=== PATIENT | female | born 1950 | race Caucasian/White ===

== ENCOUNTER 2019-08-11 02:12 | Outpatient (CLI) | payer SELFPAY ==
[2019-08-11 10:21] LABS: HEMOGLOBIN A1C 5.4 % (4.5-6.2)
[2019-08-11 10:36] LABS: CHOL/HDL RATIO 2.6 (0.00-4.99)
== END 2019-08-11 23:59 | disposition home or self-care (01) ==
LOC: HW HEART 02:12
DX: Z13.6 Encounter for screening for cardiovascular disorders (principal)
CPT/HCPCS: 36415

== ENCOUNTER 2022-07-24 15:14 | Inpatient (IN) | payer MEDICARE, BC ==
[~2022-07-24] VITALS: Ht 167.6 cm; Wt 72.7 kg
[2022-07-24] MEDS ORDERED: nitroGLYCERIN 0.4mg SUBLingual tab SL PRN (15:25)
[2022-07-24] MEDS ORDERED: morphine 4 MG/ML inj SYRINge IV ONE (15:25)
[2022-07-24] MEDS ORDERED: aspirin 81mg tab.chew PO ONE (15:25)
[2022-07-24] MEDS ORDERED: iohexol 350 MG/ML 50ML vial IV ONE (15:31)
[2022-07-24] MEDS ORDERED: heparin 10,000 units/1 ML INJ IV PRN ×2 (15:35→18:35)
[2022-07-24] MEDS ORDERED: heparin 10,000 units/1 ML INJ IV ONE ×3 (15:35→18:35)
[2022-07-24 15:37] LABS: BASOPHILS % (AUTO) 0.1 % (0-1); EOSINOPHILS % (AUTO) 0 % (0-6); HEMATOCRIT 40.6 % (35.0-45.0); HEMOGLOBIN 13.7 g/dl (12.0-16.0); LYMPHOCYTES # (AUTO) 1.7 X10'3 (1.1-4.8); LYMPHOCYTES % (AUTO) 15.5 % (21-51); MEAN CORPUSCULAR HEMOGLOBIN 31.1 PG (27.0-31.0); MEAN CORPUSCULAR HGB CONC 33.6 g/dL (33.0-36.5); MEAN CORPUSCULAR VOLUME 92.6 FL (78-98); MEAN PLATELET VOLUME 6.6 FL (7.4-10.4); MONOCYTES # (AUTO) 0.9 X10'3 (0-0.9); MONOCYTES % (AUTO) 8.2 % (2-12); NEUTROPHILS # (AUTO) 8.2 X10'3 (1.8-7.7); NEUTROPHILS % (AUTO) 76.2 % (42-75); PLATELET COUNT 353 X10'3 (140-440); RED BLOOD COUNT 4.39 X10'6 (4.20-5.60); RED CELL DISTRIBUTION WIDTH 13.9 % (11.5-14.5); WHITE BLOOD COUNT 10.7 X10'3 (4.5-11.0)
[2022-07-24] MEDS: heparin 25,000 UNIT/250ml bag 250 ML IV PRN (15:44)
[2022-07-24 15:52] LABS: ALANINE AMINOTRANSFERASE 53 U/L (12-78); ALBUMIN 4.4 G/DL (3.4-5.0); ALBUMIN/GLOBULIN RATIO 1.5 (1.1-1.5); ALKALINE PHOSPHATASE 44 IU/L (46-116); ANION GAP 11 (8-16); ASPARTATE AMINO TRANSFERASE 43 U/L (10-37); BILIRUBIN,TOTAL 0.5 MG/DL (0.1-1.0); BLOOD UREA NITROGEN 21 MG/DL (7-18); BUN/CREATININE RATIO 25.6 (6.6-38.0); CALCIUM 9.4 MG/DL (8.5-10.1); CHLORIDE 97 MMOL/L (99-107); CREATININE 0.82 MG/DL (0.40-0.90); GLUCOSE 117 MG/DL (70-104); POTASSIUM 3.8 MMOL/L (3.5-5.1); SODIUM 133 MMOL/L (135-145); TOTAL CARBON DIOXIDE 25.4 MMOL/L (24-32); TOTAL PROTEIN 7.3 G/DL (6.4-8.2); eGFR 68 ML/MIN
[2022-07-24 15:57] LABS: APTT 26 SECONDS (22-32)
--- NOTE | 2022-07-24 17:30 | NUR ---
VASCULAR AT BEDSIDE
[2022-07-24] MEDS ORDERED: HYDR-3965 PO (17:47)
[2022-07-24] MEDS ORDERED: LEVO100T PO ×2 (17:47→21:04)
[2022-07-24] MEDS ORDERED: heparin 25,000 UNIT/250ml bag 250 ML IV PRN (18:35)
--- NOTE | 2022-07-24 18:37 | NUR ---
DR ADAMS RETURNED PAGE AND WAS NOTIFIED OF PT TROPONIN OF 100. REC TELE ORDER TO INITIATE THE CARDIAC HEAPARIN PROTOCAL FOR NSTEMI. NOTIFIED CARTER PATE OF TROP LEVEL AND NEW ORDER TO START HEPARIN PROTOCAL FOR NSTEMI
[2022-07-24] MEDS ORDERED: DULO-31 PO (18:39)
[2022-07-24] MEDS ORDERED: acetaminophen 325mg tablet PO PRN (19:25)
[2022-07-24] MEDS ORDERED: mag hydrox/Alum hydrox/simeth 30ml oral suspension PO PRN (19:25)
[2022-07-24] MEDS ORDERED: potassium Cl 40MEQ/1/2NS 520ml 520 ML IV PRN (19:25)
[2022-07-24] MEDS ORDERED: magnesium hydroxide 30ml (MOM) UD suspension PO PRN (19:25)
[2022-07-24] MEDS ORDERED: ondansetron/PF 4mg/2ml inj IV PRN (19:25)
[2022-07-24] MEDS ORDERED: potassium Cl 20 mEq SR tablet PO PRN ×2 (19:25)
[2022-07-24] MEDS ORDERED: morphine 2 MG/ML inj. syringe IV PRN ×2 (19:25)
[2022-07-24] MEDS ORDERED: normal saline 1000ml 1,000 ML IV SCH (19:25)
[2022-07-24] MEDS ORDERED: magnesium 4gm in 100ml NS 100 ML IV PRN (19:25)
[2022-07-24] MEDS ORDERED: magnesium Cl slow-release 64mg tablet PO PRN (19:25)
[2022-07-24] MEDS ORDERED: metoprolol tartrate 50mg tablet PO ONE (19:30)
--- NOTE | 2022-07-24 19:34 | NUR ---
holding lopressor currently r/t HR 58
[2022-07-24] MEDS: K and/or MAG REPLACEMENT MC SCH (20:00)
[2022-07-24] MEDS: docusate sod 100mg capsule PO SCH (20:00)
[2022-07-24] MEDS ORDERED: DULO60CA65 PO (21:04)
[2022-07-24 22:00] VITALS: BP 139/76
[2022-07-25] VITALS (11 sets, daily range): BP systolic 103–150; BP diastolic 44–72
[2022-07-25 02:13] LABS: BASOPHILS % (AUTO) 0 % (0-1); EOSINOPHILS % (AUTO) 0 % (0-6); HEMATOCRIT 37.3 % (35.0-45.0); HEMOGLOBIN 12.7 g/dl (12.0-16.0); LYMPHOCYTES # (AUTO) 1.9 X10'3 (1.1-4.8); LYMPHOCYTES % (AUTO) 28.2 % (21-51); MEAN CORPUSCULAR HEMOGLOBIN 31.6 PG (27.0-31.0); MEAN CORPUSCULAR VOLUME 92.9 FL (78-98); MEAN PLATELET VOLUME 6.4 FL (7.4-10.4); MONOCYTES # (AUTO) 0.5 X10'3 (0-0.9); MONOCYTES % (AUTO) 7.2 % (2-12); NEUTROPHILS # (AUTO) 4.5 X10'3 (1.8-7.7); NEUTROPHILS % (AUTO) 64.6 % (42-75); PLATELET COUNT 272 X10'3 (140-440); RED BLOOD COUNT 4.01 X10'6 (4.20-5.60); WHITE BLOOD COUNT 6.9 X10'3 (4.5-11.0)
[2022-07-25 02:25] LABS: ALANINE AMINOTRANSFERASE 47 U/L (12-78); ALBUMIN 3.7 G/DL (3.4-5.0); ALBUMIN/GLOBULIN RATIO 1.3 (1.1-1.5); ALKALINE PHOSPHATASE 41 IU/L (46-116); ANION GAP 7 (8-16); ASPARTATE AMINO TRANSFERASE 36 U/L (10-37); BILIRUBIN,TOTAL 0.3 MG/DL (0.1-1.0); BLOOD UREA NITROGEN 14 MG/DL (7-18); BUN/CREATININE RATIO 21.9 (6.6-38.0); CALCIUM 8.5 MG/DL (8.5-10.1); CHLORIDE 105 MMOL/L (99-107); CREATININE 0.64 MG/DL (0.40-0.90); GLUCOSE 93 MG/DL (70-104); MAGNESIUM 2.4 MG/DL (1.5-2.4); POTASSIUM 4.3 MMOL/L (3.5-5.1); SODIUM 140 MMOL/L (135-145); TOTAL CARBON DIOXIDE 27.6 MMOL/L (24-32); TOTAL PROTEIN 6.5 G/DL (6.4-8.2); eGFR > 90 ML/MIN
--- NOTE | 2022-07-25 06:46 | NUR ---
Problems reprioritized. Patient report given, questions answered & plan of care reviewed with HERLINDA Tracy.
[2022-07-25] MEDS: docusate sod 100mg capsule PO SCH (07:12)
[2022-07-25] MEDS: K and/or MAG REPLACEMENT MC SCH (08:00)
[2022-07-25] MEDS ORDERED: acetaminophen 325mg tablet PO PRN (09:50)
[2022-07-25] MEDS ORDERED: nitroGLYCERIN 0.4mg SUBLingual tab SL PRN (10:45)
[2022-07-25] MEDS ORDERED: metoprolol tartrate 1mg/ml inj IV PRN (10:45)
[2022-07-25] MEDS ORDERED: aminophylline 250mg/10ml inj. IV PRN (10:45)
[2022-07-25] MEDS ORDERED: regadenoson 0.4mg/5ml syringe IV PRN (10:45)
[2022-07-25] MEDS: heparin 25,000 UNIT/250ml bag 250 ML IV PRN (13:21)
[2022-07-25 14:41] LABS: CHOL/HDL RATIO 2.3 (0.00-4.99); CHOLESTEROL 186 MG/DL (0-200); HDL CHOLESTEROL 80 MG/DL (35-60); LDL CHOLESTEROL 93 MG/DL (50-100); TRIGLYCERIDES 86 MG/DL (20-135)
--- NOTE | 2022-07-25 15:50 | NUR ---
Pt discharged in stable condition to home with . iv's removed tip intact, no complications. belongings sent with pt. pt educated on discharge follow up.
== END 2022-07-25 15:45 | disposition home or self-care (01) | DRG 391 ==
LOC: ER 15:15 → ED HOLD 18:00 → PCU 3S 19:55
PROVIDERS: ADMIT Family Medicine; ATTEND Family Medicine
PROC: 4A02XM4 Measurement of Cardiac Total Activity, External Approach (ICD-10-PCS; principal; 2022-07-25)
PROC: 3E033HZ Introduction of Radioactive Substance into Peripheral Vein, Percutaneous Approach (ICD-10-PCS; 2022-07-25)
DX: K21.9 Gastro-esophageal reflux disease without esophagitis (principal); I21.A1 Myocardial infarction type 2; R07.89 Other chest pain; F32.A Depression, unspecified; Z20.822 Contact with and (suspected) exposure to COVID-19; G89.29 Other chronic pain; E89.0 Postprocedural hypothyroidism; M54.9 Dorsalgia, unspecified; I95.2 Hypotension due to drugs; T46.3X5A Adverse effect of coronary vasodilators, initial encounter; Z87.891 Personal history of nicotine dependence; Z88.5 Allergy status to narcotic agent; Z59.00 Homelessness unspecified; Z79.899 Other long term (current) drug therapy
CPT/HCPCS: 36415; 71045; 78452; 80053; 80061; 83735; 83880; 84443; 84484; 85025; 85610; 85730; 87081; 87811; 93005; 93017; 93306; 99285; A9500; G0378; J1644; J2270; J2785; J7030; Q9967

== ENCOUNTER 2022-07-29 16:02 | Outpatient (CLI) | payer MEDICARE, BC ==
[~2022-07-29 16:02] MED LIST: DULO60CA65 PO; LEVO100T PO
[2022-07-29] MEDS ORDERED: iohexol 350MG/ML 100ml bottle IV ONE (16:18)
== END 2022-07-29 23:59 | disposition home or self-care (01) ==
LOC: RAD 16:02
PROVIDERS: ATTEND Family Medicine
DX: J43.9 Emphysema, unspecified (principal); J98.4 Other disorders of lung; I25.10 Atherosclerotic heart disease of native coronary artery without angina pectoris; I70.0 Atherosclerosis of aorta; R06.02 Shortness of breath; R07.9 Chest pain, unspecified
CPT/HCPCS: 71275; J3490; Q9967

== ENCOUNTER 2022-10-07 11:04 | Day surgery (SDC) | payer MEDICARE, BC, MEDICAID ==
[~2022-10-07] VITALS: Ht 165.1 cm; Wt 67.0 kg
[2022-10-07] VITALS (11 sets, daily range): BP systolic 112–144; BP diastolic 65–83
[2022-10-07] MEDS ORDERED: TRAM50TA2 PO (11:27)
[2022-10-07] MEDS ORDERED: AMIO200T27 PO (11:27)
[2022-10-07] MEDS ORDERED: RIVA20TA PO (11:27)
[2022-10-07] MEDS ORDERED: CYAN10006 IM (11:27)
[2022-10-07 11:41] LABS: BASOPHILS % (AUTO) 0.6 % (0-1); EOSINOPHILS % (AUTO) 0 % (0-6); HEMATOCRIT 38.2 % (35.0-45.0); HEMOGLOBIN 12.4 g/dl (12.0-16.0); LYMPHOCYTES # (AUTO) 1.3 X10'3 (1.1-4.8); MEAN CORPUSCULAR HEMOGLOBIN 30.5 PG (27.0-31.0); MEAN CORPUSCULAR HGB CONC 32.5 g/dL (33.0-36.5); MEAN CORPUSCULAR VOLUME 93.8 FL (78-98); MEAN PLATELET VOLUME 6.2 FL (7.4-10.4); MONOCYTES # (AUTO) 0.4 X10'3 (0-0.9); NEUTROPHILS # (AUTO) 3.3 X10'3 (1.8-7.7); NEUTROPHILS % (AUTO) 66.4 % (42-75); PLATELET COUNT 288 X10'3 (140-440); RED BLOOD COUNT 4.07 X10'6 (4.20-5.60); RED CELL DISTRIBUTION WIDTH 14.1 % (11.5-14.5)
[2022-10-07] MEDS ORDERED: MIDAZolam 1mg/ml 10ml vial IV ONE (11:45)
[2022-10-07] MEDS ORDERED: fentaNYL/PF 50MCG/1 ML 2ML syringe IV ONE (11:45)
[2022-10-07] MEDS ORDERED: normal saline 1000ml 1,000 ML IV SCH (11:45)
[2022-10-07 11:49] LABS: ALBUMIN 4.2 G/DL (3.4-5.0); ANION GAP 10 (8-16); BLOOD UREA NITROGEN 13 MG/DL (7-18); BUN/CREATININE RATIO 15.5 (10.0-20.0); CALCIUM 8.7 MG/DL (8.5-10.1); CHLORIDE 100 MMOL/L (99-107); CREATININE 0.84 MG/DL (0.40-0.90); GLUCOSE 95 MG/DL (70-104); POTASSIUM 4.3 MMOL/L (3.5-5.1); SODIUM 140 MMOL/L (135-145); TOTAL CARBON DIOXIDE 30.1 MMOL/L (24-32); eGFR 66 ML/MIN
[2022-10-07 11:52] LABS: APTT 29 SECONDS (22-32)
== END 2022-10-07 14:40 | disposition home or self-care (01) ==
LOC: SSTAY O 11:04
PROVIDERS: ATTEND Student in an Organized Health Care Education/Training Program
DX: I48.91 Unspecified atrial fibrillation (principal); I25.10 Atherosclerotic heart disease of native coronary artery without angina pectoris; Z88.5 Allergy status to narcotic agent; Z79.899 Other long term (current) drug therapy
CPT/HCPCS: 36415; 80048; 85025; 85610; 85730; 92960; 93005; J2250; J3010; J7030; A4620

== ENCOUNTER 2024-12-05 09:47 | Outpatient (CLI) | payer MEDICARE, BC, MEDICAID ==
[~2024-12-05 09:47] MED LIST changes: +AMIO200T27 PO; +CYAN10006 IM; +RIVA20TA PO; +TRAM50TA2 PO
--- NOTE | 2024-12-05 11:58 | RADIOLOGY REPORT ---
CLINICAL INDICATION: ACUTE PAIN OF LEFT HIP TECHNIQUE: 1 radiographic views of the pelvis were obtained. Comparison: None FINDINGS/IMPRESSION: There is no evidence of acute fracture or dislocation. 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
== END 2024-12-05 23:59 | disposition home or self-care (01) ==
LOC: RAD 09:47
PROVIDERS: ATTEND Family Medicine
DX: M16.0 Bilateral primary osteoarthritis of hip (principal); M25.552 Pain in left hip
CPT/HCPCS: 73502